=== PATIENT | female | born 1990 | race American Indian/Alaskan Native ===

== ENCOUNTER 2018-11-10 18:27 | Emergency (ER) | payer MEDICAID, OTHER ==
--- NOTE | 2018-11-10 19:05 | Event Note ---
ED Screening Note ED Screening Note: DYSURIA AND VAG DISCHARGE This initial assessment/diagnostic orders/clinical plan/treatment(s) is/are subject to change based on patients health status, clinical progression and re- assessment by fellow clinical providers in the ED. Further treatment and workup at subsequent clinical providers discretion. Patient/guardian urged not to elope from the ED as their condition may be serious if not clinically assessed and managed. Initial orders include:
[2018-11-10 21:58] LABS: HCG Qualitative,Urine Negative (Negative)
[2018-11-10 22:00] LABS: Bilirubin,Urine NEG (Negative); Blood,Urine NEG (Negative); Color,Urine Yellow (Yellow); Mucus,Urine 2+ /HPF; Protein,Urine <15 mg/dL mg/dL (Negative); Urobilinogen,Urine < 2.0 mg/dL (<2.0)
--- NOTE | 2018-11-10 22:01 | Emergency Department Report ---
ED Back Pain/Injury HPI - General Chief Complaint: Back Pain/Injury Stated Complaint: BACK PAIN Time Seen by Provider: 11/10/18 18:57 Source: patient Limitations: No Limitations - History of Present Illness Initial Comments: 27-year-old -[place] female comes in complaining of back spasms. Patient reports that she's had pain for 4 days. Patient denies any injuries. SHe patient reports that the pain is intermittent worse is sitting on day and better with standing. Patient denies any injuries.. Discussed the patient she can follow-up at the health department to get tested. She denies any pelvic pain or abdominal pain and nausea no vomiting. MD Complaint: back pain Onset/Timin -: days(s) Similar Symptoms Previously: Yes (in January 2018) - Related Data Previous Rx's Medication Instructions Recorded Last Taken Type Sulfamethoxazole/Trimethoprim 1 each PO BID #20 tablet 09/08/15 Unknown Rx [Bactrim DS TAB] Ibuprofen [Motrin 600 MG tab] 600 mg PO Q8H PRN #20 tablet 02/23/16 Unknown Rx Allergies Allergy/AdvReac Type Severity Reaction Status Date / Time No Known Allergies Allergy Verified 06/28/13 13:12 ED Review of Systems ROS: Stated complaint: BACK PAIN Other details as noted in HPI ED Past Medical Hx - Past Medical History Previous Medical History?: No Hx Hypertension: No Hx Heart Attack/AMI: No Hx Congestive Heart Failure: No Hx Diabetes: No Hx Deep Vein Thrombosis: No Hx Liver Disease: No Hx Renal Disease: No Hx Sickle Cell Disease: No Hx Seizures: No Hx Asthma: No Hx COPD: No Hx HIV: No - Surgical History Past Surgical History?: Yes Additional Surgical History: left hand surgery - Social History Smoking Status: Current Every Day Smoker Substance Use Type: None - Medications Home Medications: Home Medications Medication Instructions Recorded Confirmed Last Taken Type Sulfamethoxazole/Trimethoprim 1 each PO BID #20 tablet 09/08/15 Unknown Rx [Bactrim DS TAB] Ibuprofen [Motrin 600 MG tab] 600 mg PO Q8H PRN #20 tablet 02/23/16 Unknown Rx ED Physical Exam - General Limitations: No Limitations ED Medical Decision Making - Medical Decision Making 27-year-old female comes in for back pain as back spasms with no injury. Urinalysis was sent out urine test and sent out patient left prior to me examining her. I discussed the patient she will need to get an HIV test at the health department. Also discussed the patient she can follow up with primary [employer] which [facility] they were able to do a HIV screening. Critical care attestation.: If time is entered above; I have spent that time in minutes in the direct care of this critically ill patient, excluding procedure time. ED Disposition Clinical Impression: Back pain Disposition: Z-07 ELOPED Is pt being admited?: No Does the pt Need Aspirin: No Condition: Stable Referrals: YOU DÍAZ MD [Primary Care Provider] - 3-5 Days
== END 2018-11-10 21:55 | disposition left against medical advice (07) ==
LOC: ED 18:27
DX: M54.9 Dorsalgia, unspecified (principal); F17.200 Nicotine dependence, unspecified, uncomplicated; Z79.1 Long term (current) use of non-steroidal anti-inflammatories (NSAID)
CPT/HCPCS: 81001; 81025; 87086; 99283

== ENCOUNTER 2019-11-19 14:13 | Emergency (ER) | payer OTHER ==
[2019-11-19 14:18] VITALS: BP 119/62
[2019-11-19] MEDS ORDERED: IBUPROFEN ORAL LIQD 100 MG/5 ML ORAL.LIQD PO ONE (14:41)
[2019-11-19] MEDS ORDERED: dexAMETHasone 20 MG/5 ML VIAL IV ONE (14:42)
--- NOTE | 2019-11-19 14:49 | Emergency Department Report ---
ED General Adult HPI - General Chief complaint: Sore Throat Stated complaint: TONSILITIS Time Seen by Provider: 11/19/19 14:39 Source: patient Mode of arrival: Ambulatory Limitations: No Limitations - History of Present Illness Initial comments: 28-year-old -Stateless female patient presents with complaints of sore throat x yesterday. Patient states history of recurrent strep pharyngitis occurring about 5 times a year. She states she was supposed to have her tonsils removed a couple years ago, however was not able to take the time off work. She denies any fever, rash, chest pain, or shortness of breath. She also denies any difficulty opening her jaw or drooling Severity scale (0 -10): 7 - Related Data Previous Rx's Medication Instructions Recorded Last Taken Type Sulfamethoxazole/Trimethoprim 1 each PO BID #20 tablet 09/08/15 Unknown Rx [Bactrim DS TAB] Benzonatate [Tessalon Perles] 100 mg PO Q8HR #30 capsule 08/23/19 Unknown Rx Cetirizine HCl [Zyrtec 10mg tab] 10 mg PO DAILY #30 tablet 08/23/19 Unknown Rx Diphenoxylate/Atropine [Lomotil] 1 - 2 tab PO Q4H PRN #15 tablet 08/23/19 Unknown Rx Ibuprofen [Motrin] 600 mg PO Q8H PRN #20 tablet 08/23/19 Unknown Rx Azithromycin [Zithromax Z-VENESSA] 250 mg PO DAILY #6 tablet 11/19/19 Unknown Rx Ibuprofen [Motrin 600 MG tab] 600 mg PO Q8H PRN #20 tablet 11/19/19 Unknown Rx Allergies Allergy/AdvReac Type Severity Reaction Status Date / Time No Known Allergies Allergy Verified 08/23/19 20:30 ED Review of Systems ROS: Stated complaint: TONSILITIS Other details as noted in HPI Constitutional: fever, malaise, weakness. denies: chills, diaphoresis ENT: denies: ear pain Respiratory: denies: cough, SOB with exertion Cardiovascular: denies: chest pain Gastrointestinal: denies: abdominal pain, nausea, vomiting Skin: denies: rash, lesions Neurological: denies: headache, weakness ED Past Medical Hx - Past Medical History Previous Medical History?: Yes Hx Hypertension: No Hx Heart Attack/AMI: No Hx Congestive Heart Failure: No Hx Diabetes: No Hx Deep Vein Thrombosis: No Hx Liver Disease: No Hx Renal Disease: No Hx Sickle Cell Disease: No Hx Seizures: No Hx Asthma: No Hx COPD: No Hx HIV: No - Surgical History Past Surgical History?: Yes Additional Surgical History: left hand surgery - Social History Smoking Status: Never Smoker Substance Use Type: None - Medications Home Medications: Home Medications Medication Instructions Recorded Confirmed Last Taken Type Sulfamethoxazole/Trimethoprim 1 each PO BID #20 tablet 09/08/15 Unknown Rx [Bactrim DS TAB] Benzonatate [Tessalon Perles] 100 mg PO Q8HR #30 capsule 08/23/19 Unknown Rx Cetirizine HCl [Zyrtec 10mg tab] 10 mg PO DAILY #30 tablet 08/23/19 Unknown Rx Diphenoxylate/Atropine [Lomotil] 1 - 2 tab PO Q4H PRN #15 tablet 08/23/19 Unknown Rx Ibuprofen [Motrin] 600 mg PO Q8H PRN #20 tablet 08/23/19 Unknown Rx Azithromycin [Zithromax Z-VENESSA] 250 mg PO DAILY #6 tablet 11/19/19 Unknown Rx Ibuprofen [Motrin 600 MG tab] 600 mg PO Q8H PRN #20 tablet 11/19/19 Unknown Rx ED Physical Exam - General Limitations: No Limitations General appearance: alert, in no apparent distress, other (Patient does appear fatigued) - Head Head exam: Present: atraumatic, normocephalic - Eye Eye exam: Present: normal appearance. Absent: scleral icterus - Expanded ENT Exam Expanded Mouth exam: Absent: drooling, trismus Throat exam: Positive: tonsillar erythema, tonsillomegaly, tonsillar exudate, other (Uvula is midline). Negative: L peritonsillar mass - Neck Neck exam: Present: full ROM, lymphadenopathy (Mild anterior cervical tender l ymphadenopathy noted). Absent: tenderness - Respiratory Respiratory exam: Present: normal lung sounds bilaterally. Absent: respiratory distress - Cardiovascular Cardiovascular Exam: Present: regular rate, normal rhythm - Neurological Exam Neurological exam: Present: alert, oriented X3 - Psychiatric Psychiatric exam: Present: normal affect, normal mood - Skin Skin exam: Present: warm, dry, intact, normal color. Absent: rash, cyanosis, diaphoretic ED Course Vital Signs 11/19/19 11/19/19 11/19/19 14:17 14:40 14:47 Temperature 101.9 F H 101.9 F H Pulse Rate 108 H Respiratory 18 18 Rate Blood Pressure 119/62 [Right] O2 Sat by Pulse 98 Oximetry ED Medical Decision Making - Medical Decision Making Patient with history of recurrent strep pharyngitis presents with sore throat x yesterday. Patient has a fever of 101.9, tender cervical lymphadenopathy, and tonsillar enlargement, erythema, with exudates. Will treat empirically for strep. Patient states she normally receives amoxicillin, will try azithromycin given recurrence of strep. Ibuprofen and Decadron given for fever and tonsillomegaly. Patient's temp is now......... recommend patient follows up with ENT for reevaluation and possible tonsillectomy. Strict return precautions were discussed in detail with patient who verbalized understanding. Critical care attestation.: If time is entered above; I have spent that time in minutes in the direct care of this critically ill patient, excluding procedure time. ED Disposition Clinical Impression: Strep pharyngitis Disposition: DC- TO HOME OR SELFCARE Is pt being admited?: No Condition: Stable Instructions: Strep Throat (ED) Prescriptions: Ibuprofen [Motrin 600 MG tab] 600 mg PO Q8H PRN #20 tablet PRN Reason: Pain Azithromycin [Zithromax Z-VENESSA] 250 mg PO DAILY #6 tablet Referrals: HIREN LANDAVERDE MD [Staff Physician] - 3-5 Days Forms: Work/School Release Form(ED)
== END 2019-11-19 15:59 | disposition home or self-care (01) ==
LOC: ED 14:13
DX: J02.0 Streptococcal pharyngitis (principal); Z79.899 Other long term (current) drug therapy; Z98.890 Other specified postprocedural states
CPT/HCPCS: 96374; 99283; J1100